=== PATIENT | female | born 1965 | race Caucasian/White ===

== ENCOUNTER → 2019-06-29 | Outpatient (CLI) | payer OTHER ==
--- NOTE | 2019-06-29 15:46 | KCIC ---
Bilateral diagnostic digital mammograms: Reason for examination: Left breast lump for months to a year. New baseline. Left nipple retraction. Interpretation was made with the benefit of CAD. The skin shows no abnormalities. Left nipple does appear to be inverted. There is an abnormal appearing lymph node low in the left axilla and lymph node metastasis cannot be excluded. The breast parenchyma is extremely dense. (Breast density: Category D.) There is abnormal density in the superior breast from approximately the 11:00 to the 1:00 position which corresponds to the area of clinical concern. In the right breast there is also nodular asymmetry especially at the 10:00 C position. Impression: Abnormal parenchymal density in the superior left breast with abnormal appearing lymph node in the left axilla. This is highly suspicious of malignancy with lymph node metastases. Abnormal nodularity in the upper outer quadrant of the right breast. Ultrasound to follow. Your patient's mammogram demonstrates that she has dense breast tissue (breast density category C or D), which could hide abnormalities, and if she has other risk factors for breast cancer that have been identified, she might benefit from supplemental screening tests that may be suggested by you as her ordering physician. Dense breast tissue, in and of itself, is a relatively common condition. Therefore, this information is not provided to cause undue concern, but rather to raise your awareness and to promote discussion with your patient regarding the presence of other risk factors, in addition to dense breast tissue. Your patient's mammography results will be sent to her. BI-RAD Category 0: Incomplete. Needs additional imaging evaluation. Bilateral breast ultrasound: Bilateral whole breast ultrasound including evaluation of all 4 quadrants and the retroareolar and axillary regions of both breasts was performed. In the right breast, there is a 8.8 mm hypoechoic nodule at the 10:00 position 7 cm from the nipple. There is a 7.7 mm cystic-appearing nodule at the 11:00 position 5 cm from the nipple. There is a 1.1 cm cystic lesion at the 11:30 position deep to the nipple . There is a 1.8 cm cyst in the 10:00 position 11 cm from the nipple. In the 11:00 position 5 cm from the nipple, there is a 1.7 cm hypoechoic irregularly marginated lesion which is suspicious of malignancy. Ultrasound-guided biopsy is recommended. No grossly abnormal appearing lymph nodes are seen in the axilla. There is a superficial lesion consistent with a probable sebaceous cyst at the 12:00 position 9 cm from the nipple measuring 7 mm in greatest dimension. In the left breast, there is abnormal heterogeneous echogenicity involving the superior breast centered at the 1:00 position the area of masslike heterogeneous echogenicity measuring at least 3 cm in length and 1 cm in thickness. Abnormal appearance is seen in the lymph nodes of the left axilla which measure up to 1.3 cm in size. Ultrasound guided biopsies of the mass and lymph nodes is recommended. IMPRESSION: 1.7 cm hypoechoic irregularly marginated lesion in the 11:00 position 5 cm from the nipple in the right breast. Recommend ultrasound-guided biopsy. Diffuse abnormal echogenicity in the superior left breast centered at the 1:00 position where a mass measures at least 3 cm in greatest dimension with abnormal appearing lymph nodes in the left axilla. These findings are highly suspicious of malignancy and biopsies are recommended. BI-RADS Category 5: Highly suggestive of malignancy. These findings have been discussed with the patient and Dr. Sears's nurse, Trent, was notified about these findings at 3:25 PM on 06/29/2019. "Our facility is accredited by the [employer] Mammography [employer]." This patient's information has been entered into a reminder system for the patient to be notified with the results of her examination and a target date for the next mammogram. Electronically signed by: Ro Traylor MD (06/29/2019 3:43 PM) [id number]
== END | disposition home or self-care (01) ==
LOC: KCIC MAMMO 12:39
PROVIDERS: ATTEND Family Medicine
DX: N60.01 Solitary cyst of right breast (principal); N63.11 Unspecified lump in the right breast, upper outer quadrant
CPT/HCPCS: 76641; 77066